=== PATIENT | male | born 1985 | race Caucasian/White ===

== ENCOUNTER 2019-06-24 16:58 | Emergency (ER) | payer MEDICAID, SELFPAY ==
[2019-06-24 17:00] VITALS: BP 139/82; PULSE 88; RESP 16; TEMP 36.9; O2SAT 97
[2019-06-24 17:05] VITALS: RESP 16
--- NOTE | 2019-06-24 17:08 | ED.GENADUL_ITS ---
Discharge Plan Disposition Patient Disposition: AGAINST MEDICAL ADVICE Condition: Stable Discharge Details Chief Complaint: AMS/LOC Clinical Impression: Chest pain Primary Care Provider: Emilie,Local ED Provider: Arun Adamson Home Meds and New Rx's Prescriptions: No Action No Known Home Meds RF: 0 Discharge Instructions Instructions: Chest Pain (ED) Additional Instructions: you have chosen to leave against my medical advise. you can always return if you change your mind or want further workup Medical Decision Making 34 yo male comes in with EMS and [facility] after he was reportedly complaining of chest sherrie and went unresposive at home and was drooling on himself per bystanders. EMS states he had 2 episodes of hyperventilating then having loc. He arrives stating he wants to leave and doesn't want any workup done. He is currently caox4 and denies si/hi and has clear speech and is clinically sober. He has capacity to make his own decisions. He understands risks of missing life threatening pathology such as acs, dissection and PE and understands he could or become permanently disabled. I offered to perform lab work and imaging but he declined. I also offered to arrnage pcp f/u which he declined. He understands he can always return if he changes his mind pt left before discharge paperwork could be given Differential Diagnosis Differential Diagnosis: seizure, acs, pe HPI General Mode of arrival: EMS . Date/Time Provider Initiated Documentation: 06/24/19 16:58 . Limitations to Documentation: no limitations . Information obtained by: patient . History of Present Illness 34 year old M presents to the emergency department with the chief complaint of chest pain, Patient started experiencing this unknown No relieving factors improve symptom(s), No exacerbating factors reported . Patient did receive the following treatments prior to arrival, none Related Data Home Medications Medication Instructions Recorded Confirmed Unknown [No Known Home Meds] 01/20/16 01/20/16 Allergies Allergy/AdvReac Type Severity Reaction Status Date / Time codeine AdvReac Intermediate Hives Unverified 06/24/19 17:11 General Stated Complaint: AMS/LOC BOBBY: 2 Review of Systems All systems reviewed & are unremarkable except as noted in HPI and below Constitutional Constitutional: Denies chills and Denies fever(s) Cardiovascular Cardiovascular: Denies dyspnea Respiratory Respiratory: Denies dyspnea Gastrointestinal Gastrointestinal: Denies abdominal pain, Denies nausea and Denies vomiting Psychiatric Psychiatric: Denies depression Endocrine Endocrine: Denies cold intolerance PFSH Social History Smoking/Tobacco Use Status: Current every day Alcohol Intake: never 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 daily Additional Social history: will not answer Exam Const General: no acute distress Orientation: alert HENMT Head: normal to inspection Ears: external ears normal General nose exam: external nose normal Mouth: moist mucous membranes Eyes General: appearance normal, both eyes and all related structures Neck Neck: normal visual inspection Resp Effort & Inspection: normal respiratory effort and able to speak in complete sentences Cardio Rate: regular rate Skin General skin exam: no rashes or lesions noted Neuro General: alert and oriented x3 Extrem General: normal to inspection Psych Mental Status: mental status grossly normal Course Vital Signs Vital signs: Vital Signs Temperature 36.9 C 06/24/19 17:00 Pulse 88 06/24/19 17:00 Respiratory Rate 16 06/24/19 17:00 Blood Pressure 139/82 06/24/19 17:00 Pulse Oximetry 97 06/24/19 17:00 Temperature 36.9 C 06/24/19 17:00 Temperature Source Skin 06/24/19 17:00 Pulse 88 06/24/19 17:00 Respiratory Rate 16 06/24/19 17:00 Respiratory Effort Non-Labored 06/24/19 17:00 Blood Pressure 139/82 06/24/19 17:00 Blood Pressure Position Sitting 06/24/19 17:00 Pulse Oximetry 97 06/24/19 17:00 Oxygen Delivery Method Room Air 06/24/19 17:00 Oxygen Flow Rate 0 06/24/19 17:00 Pain Level 2 06/24/19 17:00
== END 2019-06-24 17:10 | disposition left against medical advice (07) ==
LOC: ER 17:21
PROVIDERS: Emergency Provider Emergency Medicine
DX: R07.9 Chest pain, unspecified (principal); Z53.29 Procedure and treatment not carried out because of patient's decision for other reasons
CPT/HCPCS: 99285; 99283